=== PATIENT | male | born 1985 | race Two or more races ===

== ENCOUNTER 2023-07-12 15:22 | Inpatient (IN) | payer MEDICAID, OTHER, SELFPAY ==
[2023-07-12 16:00] VITALS: BP 136/94; PULSE 77; RESP 16; TEMP 36.4; O2SAT 99; BMI 18.4
--- NOTE | 2023-07-12 16:27 | HO.PM.IMCN ---
History of Present Illness Data of Consult Service Date: 07/12/23 Requesting physician: Donte Boyer Primary Care Provider: Toney Whaley MD HPI Reason for consult: medical H&P 37-year-old male without any significant past medical history admitted to adult Psychiatry from [facility] ED with consult placed to hospitalist service for medical H&P. The patient reports while in the ED, he was experiencing left-sided headache with associated nausea and aura. He has no known history of migraines. Currently asymptomatic. Otherwise has no complaints. While in the ED, hematology studies unremarkable, renal function normal, electrolyte levels normal. EKG shows sinus bradycardia, rate [address]/T-wave abnormality or significant AV roger blocks. Urine tox screen positive for cocaine and THC. He does endorse smoking 1 cigarette today. Reports daily MJ use, denies other drug use. No eetoh use. Review of Systems Review of Systems: General: No fevers, malaise, unintentional weight loss HEENT: No blurred vision, diplopia. No sore throat, nasal congestion, rhinorrhea, sinus pain, ear pain Cardiovascular: No chest pain, palpitations, or leg edema Respiratory: No shortness of breath, wheezing, cough GI: No abdominal pain, nausea, vomiting, diarrhea, constipation, melena, hematochezia : No dysuria, hematuria, increased urinary frequency, decreased urinary output MSK: No myalgia, back pain Neuro: No headaches, weakness, paresthesias Skin: No rashes or lesions PMFSH Social History Advance Directives: No Advance Directives Information Provided: No Meds Allergies Allergy/AdvReac Type Severity Reaction Status Date / Time No Known Allergies Allergy Verified 07/12/23 16:12 Active Medications: Current Medications Acetaminophen (Acetaminophen 325 Mg Tablet) 650 mg PO Q6H PRN PRN Reason: Headache/Pain Mild Scale (1-3) Al Hydroxide/Mg Hydroxide (Magnesium Hydrox/Alum Hydrox 30 Ml Oral.Susp) 30 ml PO Q6H PRN PRN Reason: Heartburn/Nausea Clonidine HCl (Clonidine Hcl 0.1 Mg Tablet) 0.1 mg PO Q4H PRN; Protocol PRN Reason: moderate anxiety Folic Acid (Folic Acid 1 Mg Tablet) 1 mg PO DAILY CHUYITA Hydroxyzine HCl (Hydroxyzine Hcl 50 Mg Tablet) 50 mg PO Q6H PRN PRN Reason: mild Anxiety Magnesium Hydroxide (Milk Of Magnesia 30 Ml Oral.Susp) 30 ml PO DAILY PRN PRN Reason: Constipation Nicotine Polacrilex (Nicotine Polacrilex 2 Mg Gum) 4 mg BUCCAL Q2H PRN PRN Reason: Nicotine Cravings Olanzapine (Olanzapine 5 Mg Tablet) 5 mg PO TID PRN PRN Reason: agitation Thiamine HCl (Thiamine Hcl 100 Mg Tablet) 100 mg PO DAILY CHUYITA Trazodone HCl (Trazodone Hcl 50 Mg Tablet) 50 mg PO BEDTIME MRX1 PRN PRN Reason: Insomnia Physical Exam Vital Signs and Narrative: Constitutional - Awake and Alert, No apparent distress Eyes - PERRLA, EOMI Cardiovascular - S1S2, RRR, No edema Respiratory - Normal lung expansion, Normal respiratory effort, No respiratory distress, CTA bilaterally Gastrointestinal - NT / ND; +BS; No rebound or guarding Extremities - no calf tenderness bilaterally, no swelling Musculoskeletal - Normal inspection, normal ROM Skin - Warm/Dry Neurological - Alert & oriented x3, CN II-XII in tact, 5/5 strength BUE and BLE Psychological - Appropriate affect Assessment and Plan (1) Routine medical exam: Status: Acute Plan 37-year-old male without any significant past medical history admitted to adult Psychiatry from [facility] ED with consult placed to hospitalist service for medical H&P. #Mood disorder -plan per psychiatry #Substance use -plan per psychiatry #Cigarette smoking -cessation advised -declines nrt Thank you for allowing me to participate in this consult. Signing off at this time. Please do not hesitate to call for further questions or for any acute medical issues
[2023-07-12] MEDS: OLANZapine 5 MG TABLET PO (16:34)
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
[2023-07-12 19:43] VITALS: BP 135/80; PULSE 74; TEMP 37.1; O2SAT 98
[2023-07-12] MEDS: QUEtiapine Fumarate 50 MG TABLET PO (20:45)
[2023-07-13 08:00] VITALS: BP 120/79; PULSE 73; TEMP 36.3; O2SAT 100
[2023-07-13 09:28] LABS: Estimated Average Glucose 100 mg/dL; Hemoglobin A1c % 5.1 % (<6.0)
[2023-07-13] MEDS: Thiamine HCL 100 MG TABLET PO (09:31)
[2023-07-13] MEDS: Folic Acid 1 MG TABLET PO (09:31)
[2023-07-13 09:32] LABS: Alanine Aminotransferase 22 U/L (0-40); Albumin Level 4.5 g/dL (3.5-5.0); Alkaline Phosphatase 75 U/L (39-117); Anion Gap 12 (12-20); Aspartate Amino Transferase 20 U/L (5-37); Bilirubin Total 0.4 mg/dL (0.0-1.0); Blood Urea Nitrogen 13 mg/dL (9-16); Calcium 9.9 mg/dL (8.4-10.2); Carbon Dioxide 30 mmol/L (22-29); Chloride 102 mmol/L (96-108); Cholesterol 168 mg/dL (<200); Creatinine Clr Calc Pharmacy 111.4; Estimated Glomerular Filt Rate > 60; Glucose Fasting 78 mg/dL (60-99); HDL Cholesterol 61 mg/dL (>40); LDL Cholesterol Calculated 91 mg/dL (<100); Potassium 4.3 mmol/L (3.3-5.1); Sodium 140 mmol/L (135-145); Total Protein 7.6 g/dL (6.5-8.0); Triglycerides 83 mg/dL (<150)
[2023-07-13] MEDS: OLANZapine 5 MG TABLET PO (12:26)
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
[2023-07-13] MEDS: LORazepam 1 MG TABLET 2 MG PO (15:01)
[2023-07-13 20:57] VITALS: BP 120/72
[2023-07-13] MEDS: Prazosin HCL 1 MG CAPSULE PO (20:57)
[2023-07-13] MEDS: QUEtiapine Fumarate 50 MG TABLET PO (20:58)
[2023-07-14 07:00] VITALS: BMI 19.8
[2023-07-14 08:00] VITALS: BP 115/73; PULSE 85; RESP 17; TEMP 36.4; O2SAT 97
[2023-07-14] MEDS: Folic Acid 1 MG TABLET PO (08:55)
[2023-07-14] MEDS: Thiamine HCL 100 MG TABLET PO (08:55)
[2023-07-14] MEDS: buPROPion HCl XL 150 MG TAB.ER.24H PO (08:55)
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
[2023-07-14] MEDS: OLANZapine 5 MG TABLET PO (12:12)
[2023-07-14] MEDS: hydrOXYzine HCL 50 MG TABLET PO ×2 (18:35→23:22)
[2023-07-14 20:00] VITALS: BP 133/80; PULSE 79; RESP 17; TEMP 36.7; O2SAT 99
[2023-07-14 20:30] VITALS: BP 133/80
[2023-07-14] MEDS: Prazosin HCL 1 MG CAPSULE PO (20:30)
[2023-07-14] MEDS: traZODone HCL 50 MG TABLET PO ×2 (20:32→23:22)
[2023-07-14] MEDS: cloNIDine HCL 0.1 MG TABLET PO (23:22)
[2023-07-15] MEDS: Thiamine HCL 100 MG TABLET PO (09:52)
[2023-07-15] MEDS: Folic Acid 1 MG TABLET PO (09:52)
[2023-07-15] MEDS: buPROPion HCl XL 150 MG TAB.ER.24H PO (09:53)
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
[2023-07-15 11:00] VITALS: BP 119/75; PULSE 89; RESP 16; TEMP 37.1; O2SAT 97
[2023-07-15] MEDS: OLANZapine 5 MG TABLET PO (11:09)
[2023-07-15] MEDS: hydrOXYzine HCL 50 MG TABLET PO (18:51)
[2023-07-15 20:00] VITALS: BP 118/74; PULSE 81; TEMP 37.2; O2SAT 98
[2023-07-15] MEDS: Prazosin HCL 1 MG CAPSULE 2 MG PO (20:40)
[2023-07-15] MEDS: traZODone HCL 100 MG TABLET PO (20:43)
[2023-07-16] MEDS: hydrOXYzine HCL 50 MG TABLET PO ×2 (01:18→09:30)
[2023-07-16] MEDS: OLANZapine 5 MG TABLET PO ×2 (01:18→20:39)
[2023-07-16 08:00] VITALS: BP 141/82; PULSE 95; RESP 16; TEMP 36.4; O2SAT 96
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
[2023-07-16] MEDS: Thiamine HCL 100 MG TABLET PO (08:29)
[2023-07-16] MEDS: Folic Acid 1 MG TABLET PO (08:29)
[2023-07-16] MEDS: buPROPion HCl XL 150 MG TAB.ER.24H PO (08:29)
[2023-07-16 20:00] VITALS: BP 138/87; PULSE 98; TEMP 36.7; O2SAT 98
[2023-07-16] MEDS: Prazosin HCL 1 MG CAPSULE 4 MG PO (22:03)
[2023-07-16] MEDS: traZODone HCL 100 MG TABLET PO (22:04)
[2023-07-17 02:57] VITALS: BP 138/83; PULSE 106
[2023-07-17] MEDS: Thiamine HCL 100 MG TABLET PO (09:00)
[2023-07-17] MEDS: buPROPion HCl XL 150 MG TAB.ER.24H PO (09:00)
[2023-07-17] MEDS: Folic Acid 1 MG TABLET PO (09:00)
[2023-07-17 09:06] VITALS: BP 125/93; PULSE 83; RESP 18; TEMP 36.6; O2SAT 100
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
[2023-07-17] MEDS: hydrOXYzine HCL 50 MG TABLET PO (12:05)
[2023-07-17 20:00] VITALS: BP 174/99; PULSE 104; TEMP 36.3; O2SAT 98
[2023-07-17] MEDS: OLANZapine 5 MG TABLET PO (20:50)
[2023-07-17 21:45] VITALS: BP 137/83; PULSE 82; TEMP 36.9; O2SAT 99
[2023-07-17] MEDS: Prazosin HCL 1 MG CAPSULE 4 MG PO (21:46)
[2023-07-17] MEDS: traZODone HCL 100 MG TABLET PO (21:46)
[2023-07-18] MEDS: Thiamine HCL 100 MG TABLET PO (08:54)
[2023-07-18] MEDS: buPROPion HCl XL 150 MG TAB.ER.24H PO (08:54)
[2023-07-18] MEDS: Folic Acid 1 MG TABLET PO (08:54)
[2023-07-18 08:57] VITALS: BP 130/80; PULSE 97; RESP 18; TEMP 36.5; O2SAT 99
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
[2023-07-18 16:03] VITALS: BP 141/85; PULSE 111
[2023-07-18] MEDS: cloNIDine HCL 0.1 MG TABLET PO ×2 (16:03→21:20)
[2023-07-18 20:00] VITALS: BP 120/67; PULSE 87; RESP 18; TEMP 37.1; O2SAT 99
[2023-07-18 21:18] VITALS: BP 120/77
[2023-07-18] MEDS: Prazosin HCL 1 MG CAPSULE 4 MG PO (21:18)
[2023-07-18 21:20] VITALS: BP 120/77
[2023-07-18] MEDS: OLANZapine 5 MG TABLET PO (21:21)
[2023-07-18] MEDS: hydrOXYzine HCL 50 MG TABLET PO (21:21)
[2023-07-18] MEDS: traZODone HCL 100 MG TABLET PO (22:20)
[2023-07-19] MEDS: Folic Acid 1 MG TABLET PO (08:32)
[2023-07-19] MEDS: buPROPion HCl XL 150 MG TAB.ER.24H PO (08:32)
[2023-07-19] MEDS: Thiamine HCL 100 MG TABLET PO (08:32)
[2023-07-19 08:42] VITALS: BP 148/74; PULSE 115; RESP 18; TEMP 36.7; O2SAT 99
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
[2023-07-19] MEDS: hydrOXYzine HCL 50 MG TABLET PO ×2 (10:18→18:10)
[2023-07-19] MEDS: Acetaminophen 325 MG TABLET 650 MG PO (14:41)
[2023-07-19 19:50] VITALS: BP 139/74; PULSE 93; RESP 18; TEMP 36.9; O2SAT 99
[2023-07-19] MEDS: Prazosin HCL 1 MG CAPSULE 4 MG PO (20:24)
[2023-07-19] MEDS: traZODone HCL 100 MG TABLET PO (21:22)
[2023-07-20 05:19] VITALS: BP 128/68
[2023-07-20] MEDS: cloNIDine HCL 0.1 MG TABLET PO (05:19)
[2023-07-20] MEDS: hydrOXYzine HCL 50 MG TABLET PO (05:19)
[2023-07-20 08:00] VITALS: BP 119/73; PULSE 93; RESP 18; TEMP 36.7; O2SAT 99
[2023-07-20] MEDS: Folic Acid 1 MG TABLET PO (08:34)
[2023-07-20] MEDS: buPROPion HCl XL 150 MG TAB.ER.24H PO (08:34)
[2023-07-20] MEDS: Thiamine HCL 100 MG TABLET PO (08:34)
[2023-07-20] MEDS: Dextroamphetamine/Amphetamine XR 5 MG CAP.ER.24H 10 MG PO (08:34)
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
[2023-07-20] MEDS: OLANZapine 5 MG TABLET PO (10:44)
[2023-07-20] MEDS: Acetaminophen 325 MG TABLET 650 MG PO (15:55)
[2023-07-20 20:00] VITALS: BP 130/84; PULSE 88; RESP 18; TEMP 36.9; O2SAT 99
[2023-07-20 20:09] VITALS: BP 130/84
[2023-07-20] MEDS: Prazosin HCL 1 MG CAPSULE 4 MG PO (20:09)
[2023-07-20] MEDS: QUEtiapine Fumarate 100 MG TABLET PO (21:05)
[2023-07-21 07:00] VITALS: BMI 21.2
[2023-07-21 08:00] VITALS: BP 137/63; PULSE 81; RESP 18; TEMP 36.7; O2SAT 99
[2023-07-21] MEDS: Thiamine HCL 100 MG TABLET PO (09:11)
[2023-07-21] MEDS: Dextroamphetamine/Amphetamine XR 5 MG CAP.ER.24H 10 MG PO (09:11)
[2023-07-21] MEDS: buPROPion HCl XL 150 MG TAB.ER.24H PO (09:11)
[2023-07-21] MEDS: Folic Acid 1 MG TABLET PO (09:11)
[2023-07-21] MEDS: hydrOXYzine HCL 50 MG TABLET PO ×2 (09:51→17:09)
[2023-07-21] MEDS: Benzocaine 20 % Oral Gel 9 GM TUBE 1 APPL MUCOUS MEM ×3 (13:54→19:59)
[2023-07-21] MEDS: QUEtiapine Fumarate 100 MG TABLET PO (21:38)
[2023-07-21] MEDS: Prazosin HCL 1 MG CAPSULE 4 MG PO (21:39)
[2023-07-21 22:07] VITALS: BP 146/96; PULSE 101; O2SAT 100
[2023-07-22] MEDS: Benzocaine 20 % Oral Gel 9 GM TUBE 1 APPL MUCOUS MEM (07:15)
[2023-07-22 08:00] VITALS: BP 153/98; PULSE 110; RESP 18; TEMP 36.3; O2SAT 100
[2023-07-22] MEDS: Dextroamphetamine/Amphetamine XR 5 MG CAP.ER.24H 10 MG PO (08:13)
[2023-07-22] MEDS: Folic Acid 1 MG TABLET PO (08:14)
[2023-07-22] MEDS: Thiamine HCL 100 MG TABLET PO (08:14)
[2023-07-22] MEDS: buPROPion HCl XL 150 MG TAB.ER.24H PO (08:14)
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
[2023-07-22] MEDS: Naloxone HCl Nasal TAKE HOME 4 MG SPRAY 8 MG NOSTRILALT (09:52)
[2023-07-22 09:55] VITALS: BP 127/79
[2023-07-22] MEDS: cloNIDine HCL 0.1 MG TABLET PO (09:55)
== END 2023-07-22 11:03 | disposition home or self-care (01) | DRG 751 ==
PROVIDERS: Admitting Provider Psychiatry & Neurology Psychiatry; PCP Internal Medicine; Visit Provider Psychiatry & Neurology Psychiatry
DX: F33.3 Major depressive disorder, recurrent, severe with psychotic symptoms (principal); R45.851 Suicidal ideations; F10.90 Alcohol use, unspecified, uncomplicated; F43.10 Post-traumatic stress disorder, unspecified; F17.210 Nicotine dependence, cigarettes, uncomplicated; F14.20 Cocaine dependence, uncomplicated; Z71.6 Tobacco abuse counseling; Z79.899 Other long term (current) drug therapy
CPT/HCPCS: 36415; 80053; 80061; 83036

== ENCOUNTER → 2023-07-12 15:22 | Outpatient (BNV) | payer MEDICAID, OTHER, SELFPAY | PROVIDERS: Admitting Provider Psychiatry & Neurology Psychiatry; PCP Internal Medicine; Visit Provider Psychiatry & Neurology Psychiatry | DX: F33.3 Major depressive disorder, recurrent, severe with psychotic symptoms (principal); F14.20 Cocaine dependence, uncomplicated; F10.90 Alcohol use, unspecified, uncomplicated | CPT/HCPCS: 99231; 99232 ==

== ENCOUNTER → 2023-07-12 15:22 | Outpatient (BNV) | payer OTHER, SELFPAY | PROVIDERS: Admitting Provider Psychiatry & Neurology Psychiatry; PCP Internal Medicine; Visit Provider Physician Assistant | DX: Z02.2 Encounter for examination for admission to residential institution (principal) | CPT/HCPCS: 99429 ==